=== PATIENT | male | born 1955 | race Caucasian/White ===

== ENCOUNTER 2018-04-04 09:20 | Emergency (ER) | payer BC ==
[2018-04-04 09:28] VITALS: BP 134/82
--- NOTE | 2018-04-04 09:39 | UC ---
Skin Complaint HPI - HPI Summary HPI Summary: Patient is 62 year old gentleman without any significant past medical history who present today for a tick bite to the abdomen , noticed yesterday at 1 pm . Denies any fever, chills, cough chest pain or shortness of breath . Denies any abdominal pain , nausea or vomiting , diarrhea or constipation. Just has a small rash around the area, has tried to take the tick out but was not able to, still has the tick attached. - History of Current Complaint Chief Complaint: UCSkin Time Seen by Provider: 04/04/18 09:24 Stated Complaint: TICK BITE Hx Obtained From: Patient Onset/Duration: Sudden Onset Skin Exposure Onset/Duration: Days Ago Timing: Constant Onset Severity: Mild Current Severity: Mild Pain Intensity: 0 Pain Scale Used: 0-10 Numeric Location: Other - abdomen Associated Signs & Symptoms: Positive: Rash - small rash surrounding the tick bite - Allergy/Home Medications Allergies/Adverse Reactions: Allergies Allergy/AdvReac Type Severity Reaction Status Date / Time No Known Allergies Allergy Verified 04/04/18 09:28 Home Medications: Home Medications Ibuprofen TAB* [Advil TAB*] 600 mg PO Q6H PRN 04/04/18 [History Confirmed ] Review of Systems Constitutional: Negative Skin: Rash - small local area Eyes: Negative ENT: Negative Respiratory: Negative Cardiovascular: Negative Gastrointestinal: Negative Genitourinary: Negative Motor: Negative Neurovascular: Negative Musculoskeletal: Negative Neurological: Negative Psychological: Negative Is Patient Immunocompromised?: No All Other Systems Reviewed And Are Negative: Yes PMH/Surg Hx/FS Hx/Imm Hx Previously Healthy: Yes Other Endocrine History: negative Other Cardiovascular History: negative Other Respiratory History: negative Other GI/ History: negative Other Neurological History: negative Other Psychological History: negative Other Cancer History: negative - Surgical History Surgical History: Yes Surgery Procedure, Year, and Place: [email or web address] 04/07,HERNIA, TONSILLECTOMY, CATARACTS - Family History Known Family History: Negative: Respiratory Disease - Social History Alcohol Use: Rare Substance Use Type: None Smoking Status (MU): Never Smoked Tobacco Physical Exam Triage Information Reviewed: Yes Appearance: Well-Appearing, No Pain Distress Vital Signs: Initial Vital Signs Temp 97.2 F 04/04/18 09:25 Pulse 53 04/04/18 09:25 Resp 18 04/04/18 09:25 BP 134/82 04/04/18 09:25 Pulse Ox 100 04/04/18 09:25 Vital Signs Reviewed: Yes Eyes: Positive: Conjunctiva Clear ENT: Positive: Hearing grossly normal. Negative: Trismus, Muffled voice, Hoarse voice Respiratory Exam: Normal Respiratory: Positive: Lungs clear, Normal breath sounds. Negative: Crackles, Rhonchi, Stridor, Wheezing Cardiovascular Exam: Normal Cardiovascular: Positive: RRR, No Murmur Abdomen Description: Positive: Other: - tick noted on right lower abdomen Musculoskeletal: Positive: Strength Intact Neurological: Positive: Alert Psychological: Positive: Age Appropriate Behavior Skin: Positive: Other - tick noted on right lower abdomen. Small rash noted surrounding the tick. No drainage Course/Dx - Course Course Of Treatment: During his visit today, we removed the complete tick using the dish detergent. Bandaid applied. We discussed the findings and further plan. He agreed to take 1 time dose of doxycycline. I will prescribe the medication to the pharmacy . Patient expressed understanding . - Diagnoses Provider Diagnoses: Tick bite Discharge - Sign-Out/Discharge Documenting (check all that apply): Discharge/Admit/Transfer - Discharge Plan Condition: Stable Disposition: HOME Prescriptions: DOXYcycline CAP(*) [DOXYcycline 100MG CAP(*)] 100 mg PO DAILY #2 cap Patient Education Materials: Tick Bite (ED) Referrals: Jaun Dixon MD [Primary Care Provider] - Additional Instructions: Skin Complaint HPI - HPI Summary HPI Summary: Patient is 62 year old gentleman without any significant past medical history who present today for a tick bite to the abdomen , noticed yesterday at 1 pm . Denies any fever, chills, cough chest pain or shortness of breath . Denies any abdominal pain , nausea or vomiting , diarrhea or constipation. Just has a small rash around the area, has tried to take the tick out but was not able to, still has the tick attached. - History of Current Complaint Chief Complaint: UCSkin Time Seen by Provider: 04/04/18 09:24 Stated Complaint: TICK BITE Hx Obtained From: Patient Onset/Duration: Sudden Onset Skin Exposure Onset/Duration: Days Ago Timing: Constant Onset Severity: Mild Current Severity: Mild Pain Intensity: 0 Pain Scale Used: 0-10 Numeric Location: Other - abdomen Associated Signs & Symptoms: Positive: Rash - small rash surrounding the tick bite - Allergy/Home Medications Allergies/Adverse Reactions: Allergies Allergy/AdvReac Type Severity Reaction Status Date / Time No Known Allergies Allergy Verified 04/04/18 09:28 Home Medications: Home Medications Ibuprofen TAB* [Advil TAB*] 600 mg PO Q6H PRN 04/04/18 [History Confirmed ] Review of Systems Constitutional: Negative Skin: Rash - small local area Eyes: Negative ENT: Negative Respiratory: Negative Cardiovascular: Negative Gastrointestinal: Negative Genitourinary: Negative Motor: Negative Neurovascular: Negative Musculoskeletal: Negative Neurological: Negative Psychological: Negative Is Patient Immunocompromised?: No All Other Systems Reviewed And Are Negative: Yes PMH/Surg Hx/FS Hx/Imm Hx Previously Healthy: Yes Other Endocrine History: negative Other Cardiovascular History: negative Other Respiratory History: negative Other GI/ History: negative Other Neurological History: negative Other Psychological History: negative Other Cancer History: negative - Surgical History Surgical History: Yes Surgery Procedure, Year, and Place: [email or web address] 04/07,HERNIA, TONSILLECTOMY, CATARACTS - Family History Known Family History: Negative: Respiratory Disease - Social History Alcohol Use: Rare Substance Use Type: None Smoking Status (MU): Never Smoked Tobacco Physical Exam Triage Information Reviewed: Yes Appearance: Well-Appearing, No Pain Distress Vital Signs: Initial Vital Signs Temp 97.2 F 04/04/18 09:25 Pulse 53 04/04/18 09:25 Resp 18 04/04/18 09:25 BP 134/82 04/04/18 09:25 Pulse Ox 100 04/04/18 09:25 Vital Signs Reviewed: Yes Eyes: Positive: Conjunctiva Clear ENT: Positive: Hearing grossly normal. Negative: Trismus, Muffled voice, Hoarse voice Respiratory Exam: Normal Respiratory: Positive: Lungs clear, Normal breath sounds. Negative: Crackles, Rhonchi, Stridor, Wheezing Cardiovascular Exam: Normal Cardiovascular: Positive: RRR, No Murmur Abdomen Description: Positive: Other: - tick noted on right lower abdomen Musculoskeletal: Positive: Strength Intact Neurological: Positive: Alert Psychological: Positive: Age Appropriate Behavior Skin: Positive: Other - tick noted on right lower abdomen. Small rash noted surrounding the tick. No drainage Course/Dx - Course Course Of Treatment: During his visit today, we removed the complete tick using the dish detergent. Bandaid applied. We discussed the findings and further plan. He agreed to take 1 time dose of doxycycline. I will prescribe the medication to the pharmacy . Patient expressed understanding . Discharge - Sign-Out/Discharge Documenting (check all that apply): Discharge/Admit/Transfer - Discharge Plan Condition: Stable Disposition: HOME Prescriptions: DOXYcycline CAP(*) [DOXYcycline 100MG CAP(*)] 100 mg PO DAILY #2 cap Patient Education Materials: Tick Bite (ED) Referrals: Jaun Dixon MD [Primary Care Provider] - Additional Instructions: Take doxycycline 200mg , 1 time dose. Followup with you PCP in 1 week. Return to ER / Urgent care is any new symptoms develop. - Billing Disposition and Condition Condition: STABLE Disposition: HOME Images Front/Back of Body, Lg ([place]): 1 - tick , right lower abdomen Take doxycycline 200mg , 1 time dose. Followup with you PCP in 1 week. Return to ER / Urgent care is any new symptoms develop Blood pressure slightly high, plan follow up with PCP - Billing Disposition and Condition Condition: STABLE Disposition: HOME Images Front/Back of Body, Lg ([place]): 1 - tick , right lower abdomen
== END 2018-04-04 09:57 | disposition home or self-care (01) ==
LOC: UCEAST 09:20
DX: S30.861A Insect bite (nonvenomous) of abdominal wall, initial encounter (principal); W57.XXXA Bitten or stung by nonvenomous insect and other nonvenomous arthropods, initial encounter; Y93.9 Activity, unspecified; Y92.9 Unspecified place or not applicable
CPT/HCPCS: 99212; G0463

== ENCOUNTER 2018-09-08 21:17 | Emergency (ER) | payer BC ==
[2018-09-08 21:30] VITALS: BP 102/63
[2018-09-08] MEDS ORDERED: DOXYcycline CAP(*) 100 MG PO ONE (21:38)
--- NOTE | 2018-09-08 21:38 | UC ---
Skin Complaint HPI - HPI Summary HPI Summary: The patient is 63-year-old male that presents here with a tick attached to his right leg. He thinks it is been on for 36-48 hours. - History of Current Complaint Chief Complaint: UCSkin Time Seen by Provider: 09/08/18 21:31 Stated Complaint: TICK BITE Hx Obtained From: Patient Timing: Constant Onset Severity: Mild Current Severity: Moderate Pain Intensity: 2 Pain Scale Used: 0-10 Numeric Aggravating Factor(s): Nothing Alleviating Factor(s): Nothing Related History: Insect Bite/Sting - Allergy/Home Medications Allergies/Adverse Reactions: Allergies Allergy/AdvReac Type Severity Reaction Status Date / Time No Known Allergies Allergy Verified 09/08/18 21:29 Review of Systems Constitutional: Negative Skin: Negative Eyes: Negative ENT: Negative Respiratory: Negative Cardiovascular: Negative Gastrointestinal: Negative Genitourinary: Negative Motor: Negative Neurovascular: Negative Musculoskeletal: Negative Neurological: Negative Psychological: Negative All Other Systems Reviewed And Are Negative: Yes PMH/Surg Hx/FS Hx/Imm Hx Previously Healthy: Yes - Surgical History Surgical History: Yes Surgery Procedure, Year, and Place: [email or web address] 04/07,HERNIA, TONSILLECTOMY, CATARACTS - Family History Known Family History: Positive: Hypertension Negative: Respiratory Disease - Social History Alcohol Use: None Substance Use Type: None Smoking Status (MU): Never Smoked Tobacco Physical Exam Triage Information Reviewed: Yes Appearance: Well-Appearing, No Pain Distress, Well-Nourished Vital Signs: Initial Vital Signs Temp 97.6 F 09/08/18 21:26 Pulse 70 09/08/18 21:26 Resp 16 09/08/18 21:26 BP 102/63 09/08/18 21:26 Pulse Ox 98 09/08/18 21:26 Eyes: Positive: Conjunctiva Inflamed - L ENT: Positive: Hearing grossly normal. Negative: Nasal congestion, Nasal drainage, Trismus, Muffled voice Neck: Positive: Supple, No Lymphadenopathy Respiratory: Positive: No respiratory distress Cardiovascular: Positive: RRR, No Murmur Musculoskeletal: Positive: ROM Intact, No Edema Neurological: Positive: Alert Psychological Exam: Normal Skin Exam: Other - Tick near right popliteal fossa Course/Dx - Course Course Of Treatment: tick removed in toto with tick twister - Diagnoses Provider Diagnoses: Tick removal. lyme disease prophylaxis Discharge - Sign-Out/Discharge Documenting (check all that apply): Patient Departure All imaging exams completed and their final reports reviewed: No Studies - Discharge Plan Condition: Stable Disposition: HOME Referrals: Jaun Dixon MD [Primary Care Provider] - - Billing Disposition and Condition Condition: STABLE Disposition: Home
== END 2018-09-08 21:53 | disposition home or self-care (01) ==
LOC: UCEAST 21:17
DX: T63.481A Toxic effect of venom of other arthropod, accidental (unintentional), initial encounter (principal); Y92.9 Unspecified place or not applicable
CPT/HCPCS: 99212; A9270-GY; G0463

== ENCOUNTER 2019-08-24 11:02 | Emergency (ER) | payer BC ==
--- OUTSIDE RECORDS SUMMARY | 2019-08-24 11:11 | XMS REPORT | Continuity of Care Document ---
:1955 External Reference #:[id number] Author Name James Lynn M.D. Address [address] [place] [address] Care Team Providers Name Role Phone Jaun Dixon M.D. - Internal Care Team Information Social Work Program Coordinator [phone] Medicine Problems Active Problems Provider Date Combined form of senile cataract Milagros Raza O.D. Onset: 02/17/2016 Myopia Milagros Raza O.D. Onset: 02/17/2016 Regular astigmatism Milagros Raza O.D. Onset: 02/17/2016 Presbyopia Milagros Raza O.D. Onset: 02/17/2016 Other secondary cataract, left eye Milagros Raza O.D. Onset: 02/17/2016 Craniotomy Onset: Nuclear senile cataract James Lynn M.D. Onset: 06/27/2016 Presence of intraocular lens James Lynn M.D. Onset: 07/17/2016 Social History Type Date Description Comments Sex Unknown ETOH Use Rarely consumes alcohol Tobacco Use Start: Unknown Patient has never smoked Recreational Drug Use Denies Drug Use Smoking Status Reviewed: 08/17/19 Patient has never smoked Allergies, Adverse Reactions, Alerts Description No Known Drug Allergies Medications Active Medications SIG Qnty Indications Ordering Provider Date Ibuprofen twice as needed Unknown 200mg Capsules Immunizations Description No Information Available Vital Signs Date Vital Result Comment 07/17/2016 2:14pm BP Systolic 123 mmHg BP Diastolic 80 mmHg Heart Rate 69 /min Respiratory Rate 13 /min Results Description No Information Available Procedures Description No Information Available Medical Devices Description No Information Available Encounters Description No Information Available Assessments Date Code Description Provider 08/17/2019 H25.11 Age-related nuclear cataract, right eye James Lynn M.D. Plan of Treatment 08/17/2019 - James Lynn M.D.H25.11 Age-related nuclear cataract, right eyeComments:Smoking can increase the risk of developing or worsening any eye related disease, as well as affect your overall health. If you are a smoker, we strongly recommend that you quit.If you are not a smoker, we strongly recommend that you do not start. You have been diagnosed with a cataract in the righteye. If you are happy with your vision as it is, we will see you at your next scheduled appointment.If you feel like your vision is getting worse before your scheduled appointment, please call Rachel at [phone].Follow up:1 Year Follow Up DFE You can expect to have your eyes dilated at your next visit. If Dr. Lynn orders any additional testing, it may require extra time. We recommend that you bring sunglasses, as dilation drops often make you light sensitive until they wear off. We always recommend you bring someone to drive you home if you are uncomfortable driving with your eyes dilated. If you have any questions before your next visit, feel free to call our office at . Functional Status Description No Information Available Mental Status Description No Information Available Referrals Description No Information Available
[2019-08-24 11:24] VITALS: BP 119/79
--- NOTE | 2019-08-24 12:03 | UC ---
General HPI - HPI Summary HPI Summary: Pleasant 64 yo gentleman presents d/t concern tick bite 2 days ago. Thinks was on apprx 12 hours. Had a friend pull it off, without difficulty. Progressive redness at site of tike bite, prompting visit for "prophylaxis." No known hx lyme. - History of Current Complaint Chief Complaint: UCGeneralIllness Stated Complaint: TICK BITE Time Seen by Provider: 08/24/19 12:03 Hx Obtained From: Patient Pain Intensity: 0 - Allergy/Home Medications Allergies/Adverse Reactions: Allergies Allergy/AdvReac Type Severity Reaction Status Date / Time No Known Allergies Allergy Verified 08/24/19 11:20 PMH/Surg Hx/FS Hx/Imm Hx - Surgical History Surgical History: Yes Surgery Procedure, Year, and Place: [email or web address] 2005,HERNIA repair, TONSILLECTOMY ,CATARACTS - Family History Known Family History: Positive: Hypertension Negative: Respiratory Disease - Social History Alcohol Use: None Substance Use Type: None Smoking Status (MU): Never Smoked Tobacco Review of Systems All Other Systems Reviewed And Are Negative: Yes Constitutional: Positive: Negative Skin: Positive: Other - see hpi Eyes: Positive: Negative ENT: Positive: Negative Respiratory: Positive: Negative Cardiovascular: Positive: Negative Gastrointestinal: Positive: Negative Genitourinary: Positive: Negative Motor: Positive: Negative Neurovascular: Positive: Negative Musculoskeletal: Positive: Negative Neurological: Positive: Negative Psychological: Positive: Negative Is Patient Immunocompromised?: No Physical Exam Triage Information Reviewed: Yes Appearance: Well-Appearing, Well-Nourished Vital Signs: Initial Vital Signs Temp 97.9 F 08/24/19 11:20 Pulse 67 08/24/19 11:20 Resp 18 08/24/19 11:20 BP 119/79 08/24/19 11:20 Pulse Ox 98 08/24/19 11:20 Vital Signs Reviewed: Yes Eye Exam: Normal - grossly normal ENT Exam: Normal - grossly normal Neck exam: Normal - no c/o's Respiratory Exam: Normal Cardiovascular Exam: Normal - hr normal, nondiaphoretic. Abdominal Exam: Normal Abdomen Description: Positive: Nontender Musculoskeletal Exam: Normal Neurological Exam: Normal - grossly nonfocal Psychological Exam: Normal - nad Skin Exam: Other - left ant abd wall: Site of tick bite 6mmL x 8mmL circular nonblanching lesion with small central black area (no tick parts identified with light micro), 4cmL x 7cmL red semiblanching rash extending outwards. Minimally tender. Course/Dx - Course Course Of Treatment: Reviewed coa / tx plan. Tick in and of itself low threshold for lyme trasmission based on hx. (12 hrs adhered, 2 days ago). However, rash is concerning. Hx lyme? Other? Will check tick borne panel, and lyme serology. Doxycycline 200mg po x 1 today, rx e -scribed. Will f/u PCP in 3-4 weeks. Sooner if worse or new issues. Seems pleased with tx. Questions as posed answered to the best of my ability. Reviewed doxy precautions. - Diagnoses Provider Diagnosis: Tick bite of abdomen, Rash Discharge ED - Sign-Out/Discharge Documenting (check all that apply): Patient Departure All imaging exams completed and their final reports reviewed: No Studies - Discharge Plan Condition: Stable Disposition: HOME Prescriptions: DOXYcycline CAP(*) [DOXYcycline 100MG CAP(*)] 200 mg PO DAILY #2 cap Patient Education Materials: Tick Bite (ED), Acute Rash (ED) Referrals: Jaun Dixon MD [Primary Care Provider] - Additional Instructions: Follow up with Dr. Thomas in 3 - 4 weeks. Hydrate. Seek medical attention for worse or new problems. - Billing Disposition and Condition Condition: STABLE Disposition: Home
[2019-08-27 16:53] LABS: Anaplasma phagocytophilium <1:64 titer (<1:64); Ehrlichia chaffeensis IgG AB <1:64 titer (<1:64); Lyme Disease Serology Negative (Negative)
--- NOTE | 2019-08-28 07:17 | UC ---
- Progress Note Progress Note: Tick panel neg no change ljj 08/28/19 Course/Dx - Diagnoses Provider Diagnoses: Tick bite of abdomen, Rash Discharge ED - Sign-Out/Discharge Documenting (check all that apply): Post-Discharge Follow Up All imaging exams completed and their final reports reviewed: No Studies - Discharge Plan Condition: Stable Disposition: HOME Prescriptions: DOXYcycline CAP(*) [DOXYcycline 100MG CAP(*)] 200 mg PO DAILY #2 cap Patient Education Materials: Tick Bite (ED), Acute Rash (ED) Referrals: Jaun Dixon MD [Primary Care Provider] - Additional Instructions: Follow up with Dr. Thomas in 3 - 4 weeks. Hydrate. Seek medical attention for worse or new problems. - Billing Disposition and Condition Condition: STABLE Disposition: Home
== END 2019-08-24 12:37 | disposition home or self-care (01) ==
LOC: UCEAST 11:02
DX: S30.861A Insect bite (nonvenomous) of abdominal wall, initial encounter (principal); R21 Rash and other nonspecific skin eruption; W57.XXXA Bitten or stung by nonvenomous insect and other nonvenomous arthropods, initial encounter; Y92.9 Unspecified place or not applicable
CPT/HCPCS: 36415; 86618; 86666; 86753; 99212; G0463